=== PATIENT | female | born 1975 | race Caucasian/White ===

== ENCOUNTER 2018-11-22 12:36 | Emergency (ER) | payer BC, MEDICAID, SELFPAY ==
[2018-11-22 12:37] VITALS: BP 170/79; PULSE 76; RESP 20; TEMP 35.7; BMI 38.0
--- NOTE | 2018-11-22 13:15 | ED.VISSUMM ---
- ER Visit Summary Date of Service: 11/22/18 Chief Complaint: Sore throat History of Present Illness: The patient is a 43 F with subjective fevers sore throat for the past 2 days. No shortness of breath. She has a very slight cough is mostly chronic due to her cigarette smoking. No abdominal pain nausea vomiting. Physical Examination: She has posterior oropharyngeal erythema with bilateral exudates. There is some slight tonsillar enlargement. Normal soft palate. Normal voice. Clear lungs bilaterally. She does have anterior lymphadenopathy. Emergency Department Course and Treatment: Centor score is 4, treat with azithromycin since the patient is allergic to penicillin. Disposition: Discharge stable condition Impression: Pharyngitis This note was generated with [employer] dictation software. It may contain incorrect words, spelling, and punctuation that were not noted in review of the chart prior to signing ED Disposition - Plan for ED Patient: Disposition: Home or Assisted Living Chief Complaint: Sore Throat Instructions: ED Strep Pharyngitis Conf Prescriptions: Hydrocodone Bitart/Apap 5-325 [Danese 5MG-325MG] 1 tab PO Q4H PRN PRN 2 Days #10 tab PRN Reason: Pain Azithromycin 250 mg PO DAILY #6 tab Referrals: Gerber Valencia MD [Primary Care Provider] -
--- NOTE | 2018-11-22 13:19 | ED.DCSUM_ITS ---
- ER Visit Summary Date of Service: 11/22/18 Chief Complaint: Sore throat History of Present Illness: The patient is a 43 F with subjective fevers sore throat for the past 2 days. No shortness of breath. She has a very slight cough is mostly chronic due to her cigarette smoking. No abdominal pain nausea vomiting. Physical Examination: She has posterior oropharyngeal erythema with bilateral exudates. There is some slight tonsillar enlargement. Normal soft palate. Normal voice. Clear lungs bilaterally. She does have anterior lymphadenopathy. Emergency Department Course and Treatment: Centor score is 4, treat with azithromycin since the patient is allergic to penicillin. Disposition: Discharge stable condition Impression: Pharyngitis This note was generated with [employer] dictation software. It may contain incorrect words, spelling, and punctuation that were not noted in review of the chart prior to signing ED Disposition - Plan for ED Patient: Disposition: Home or Assisted Living Chief Complaint: Sore Throat Instructions: ED Strep Pharyngitis Conf Prescriptions: Hydrocodone Bitart/Apap 5-325 [B[place] 5MG-325MG] 1 tab PO Q4H PRN PRN 2 Days #10 tab PRN Reason: Pain Azithromycin 250 mg PO DAILY #6 tab Referrals: Gerber Valencia MD [Primary Care Provider] -
--- NOTE | 2018-11-22 13:22 | ED.VISSUMM ---
- ER Visit Summary Date of Service: 11/22/18 Chief Complaint: [] History of Present Illness: The patient is a 43 F [] Physical Examination: [] Test Results: [] Emergency Department Course and Treatment: [] Treatment Plan: [] Disposition: [] Impression: [] This note was generated with [employer] dictation software. It may contain incorrect words, spelling, and punctuation that were not noted in review of the chart prior to signing ED Disposition - Plan for ED Patient: Chief Complaint: Sore Throat Instructions: ED Strep Pharyngitis Conf Prescriptions: Hydrocodone Bitart/Apap 5-325 [[place] 5MG-325MG] 1 tab PO Q4H PRN PRN 2 Days #10 tab PRN Reason: Pain Azithromycin 250 mg PO DAILY #6 tab Referrals: Gerber Valencia MD [Primary Care Provider] -
== END 2018-11-22 13:34 | disposition home or self-care (01) ==
PROVIDERS: Emergency Provider Emergency Medicine; Family Provider Internal Medicine; PCP Internal Medicine
DX: J02.9 Acute pharyngitis, unspecified (principal); Z88.0 Allergy status to penicillin; F17.210 Nicotine dependence, cigarettes, uncomplicated; I10 Essential (primary) hypertension
CPT/HCPCS: 99282

== ENCOUNTER 2020-05-08 20:09 | Emergency (ER) | payer BC, MEDICAID, SELFPAY ==
[2020-05-08 20:10] VITALS: BP 170/80; PULSE 85; RESP 20; TEMP 36.6; O2SAT 98; BMI 40.8
--- NOTE | 2020-05-08 20:22 | ED.DCSUM_ITS ---
History of Present Illness Detail of Chief Complaint: Upper respiratory symptoms with wheezing Informant: Patient Onset: Weeks - Greater than 1 week ago Context: Sudden Onset Timing: Continuous Quality: Upper respiratory symptoms with wheezing Location: Upper respiratory Current Severity: Mild Maximum Severity: Moderate Worsened by: Coughing, Relieved by: Nothing Associated Symptoms: URI with wheezing, dysphonia and throat pain Narrative: Patient is a 45-year-old woman who is a smoker and has history of asthma. She does report productive cough of green-colored sputum. Her respiratory symptoms started 1 week ago. She complains of myalgias and arthralgias. She reports rhinorrhea, congestion postnasal drainage. She reports throat pain and change in voice. She does report shortness of breath with wheezing. She has not been on prednisone the last 3 months. She denies chest pain. She denies joint swelling. She denies rash. She does complain of global generalized headache without photophobia, neck pain or neck stiffness. She denies ringing or ears, ear pain or decreased hearing. She denies nausea, vomiting diarrhea. She denies dysuria, frequency, urgency or hematuria. She has no ill contacts to her knowledge and specifically no contacts with anyone that was positive for COVID- 19. Prior similar symptoms: No Recent Illness/Hospitalization: No <Schuler,Delbert - Last Filed: 05/08/20 20:59> <Marely Jensen - Last Filed: 05/08/20 21:51> Chief Complaint: Cold Sx - Past Medical History (1) History of asthma Status: Acute <Cshuler,Delbert - Last Filed: 05/08/20 20:59> Past Medical History Prior records reviewed: Yes Surgical History: noncontributory Lives: Alone Smoking Status: Current every day smoker Alcohol: Rare Drugs: None <Schuler,Delbert - Last Filed: 05/08/20 20:59> <Marely Jensen - Last Filed: 05/08/20 21:51> - Allergies and Home Meds Allergies/Adverse Reactions: Allergies Penicillins Allergy (Verified 11/22/18 12:55) Rash Primary Care Physician: Gerber Valencia MD [Primary Care Provider] - 3-5 Days if not improving Review of Systems General: Reports: Fever, Malaise, Subjective. Denies: Sweats, Weight loss Eyes: Denies: Visual changes - bilaterally, Blurred Vision - bilaterally ENT: Reports: Rhinorrhea, Sore throat, - - Dysphonia Cardiovascular: Reports: Palpitations. Denies: Chest pain, Heart racing Respiratory: Reports: Dyspnea, Cough, Sputum, Dyspnea on exertion. Denies: Orthopnea, Paroxysmal nocturnal dyspnea Gastrointestinal: Denies: Abdominal pain, Nausea, Vomiting, Diarrhea, Melena, Hematochezia Genitourinary: Denies: Dysuria, Hematuria, Frequency Musculoskeletal: Reports: Myalgias, Arthralgias. Denies: Neck pain, Back pain, Swelling, Extremity Pain, -, - Skin: Denies: Rash, Wounds Neurological: Reports: Headache. Denies: Weakness, Parasthesia, Numbness, -, - Endocrine: Denies: Polyuria, Polydipsia Hematologic: Denies: Easy bruising, Easy bleeding Allergy: Reports: - - He complains of mouth sores. She does have evidence of stomatitis and possibly HSV infection lower lip.. Denies: Uticaria <Schuler,Delbert - Last Filed: 05/08/20 20:59> Physical Exam Vital Signs/Narrative: Vital Signs Temp Pulse Resp BP Pulse Ox 05/08/20 20:10 98 F 85 20 H 170/80 H 98 Inital Vital Signs reviewed: Yes General: Well nourished, Well developed, Obese, Acute Distress Head: Normocephalic, Atraumatic Eyes: Perrl, EOMI. Negative for: Pale conjunctiva, Scleral icterus ENT: Moist mucous membranes, No rhinorrhea, TM's clear, - - There is evidence of stomatitis. Neck: Supple, Nontender, No lymphadenopathy, No JVD Cardiovascular: Regular rate, Regular rhythm, No murmurs Respiratory: Chest nontender, Wheezing, Decreased Air Movement. Negative for: No distress, CTA bilaterally Abdomen: Soft, Nontender, Nondistended, Normal bowel sounds Rectal: Deferred Back: Nontender, Normal Inspection. Negative for: CVA tenderness, Spinal tenderness Extremities: Nontender, No edema, - - There is no asymmetry, swelling, discoloration, leg vein distention, palpable cords or tenderness along the distribution of the deep venous system.. Negative for: Tenderness, Edema Skin: Normal color, No rash, No Trauma. Negative for: Cyanosis, Diaphoresis, Jaundice Neurological: Alert, Oriented x3, Cranial nerves II-XII grossly intact, Normal Strength, Normal Sensation Psychological: Tearful <Delbert Schuler - Last Filed: 05/08/20 20:59> Vital Signs/Narrative: Vital Signs Temp Pulse Resp BP Pulse Ox 05/08/20 21:26 98.1 F 92 18 115/61 97 05/08/20 20:41 79 17 138/68 H 98 05/08/20 20:10 98 F 85 20 H 170/80 H 98 <Marely Jensen - Last Filed: 05/08/20 21:51> Diagnostic/Tx/Re-eval Chest X-Ray - ED: 1 View, Read by ED Physician, Normal, Heart, Lungs, Mediastinum, Bony Structures, No Acute Disease, - - X-rays interpreted by me at 2058. - Medical Decision Making Presents with upper respiratory symptoms. This may represent acute bronchitis, exacerbation of asthma, pneumonia, COVID-19 infection. There is evidence of stomatitis. Appropriate lab tests and chest x-ray were ordered. She was treated with Solu-Medrol, DuoNeb and albuterol. Patient's history and physical was discussed with evening physician. Disposition be made by Dr. Cha. <Delbert Schuler - Last Filed: 05/08/20 20:59> - Medical Decision Making She was signed out to me pending repeat evaluation. After aerosol treatments she does feel improved. Lung sounds are clear on auscultation. Covid test is pending at this time. Advised the patient that I would let her go home and we will call her if her test is positive. Antibiotics and steroids were already sent to the pharmacy by Dr. Schuler. Position: Discharge Impression: 1. Bronchitis 2. Asthma exacerbation <Marely Jensen - Last Filed: 05/08/20 21:51> ED Disposition <Delbert Schuler - Last Filed: 05/08/20 20:59> <Marely Jensen - Last Filed: 05/08/20 21:51> - Plan for ED Patient: Diagnosis: Exacerbation of asthma, Upper respiratory infection with cough and congestion, Laryngitis, Purulent bronchitis Instructions: ED Bronchitis Asthmatic Prescriptions: Prednisone [Deltasone] 40 mg PO DAILY #10 tab Transmission Status: Received by [facility] - [id number] Doxycycline 100 mg PO BID #10 cap Transmission Status: Received by [facility] [place] - [id number] Referrals: Gerber Valencia MD [Primary Care Provider] - 3-5 Days if not improving
[2020-05-08 20:34] VITALS: PULSE 93; RESP 20
[2020-05-08] MEDS: Ipratropium/Albuterol Sulfate 3 ML AMPUL.NEB INHALATION (20:34)
[2020-05-08] MEDS: Albuterol 2.5 MG/3 ML VIAL.NEB. INHALATION ×3 (20:34)
[2020-05-08 20:41] VITALS: BP 138/68; PULSE 79; RESP 17; O2SAT 98
[2020-05-08] MEDS: MethylPREDNISolone 125 MG/2 ML Vial IV (20:43)
[2020-05-08 20:44] VITALS: O2SAT 98
--- NOTE | 2020-05-08 20:45 | RAD_ITS ---
STUDY: X-RAY CHEST REASON FOR EXAM: Female, 45 years old. SORE THROAT, NO VOICE, BODY PAIN X 1 WEEK, UNBEARABLE TODAY. TECHNIQUE: Single AP portable view of the chest. COMPARISON: 04/05/2014. FINDINGS: The lungs are clear and expanded. There is no demonstrated pleural abnormality. Normal size heart. Normal mediastinum and karyn. Normal visualized pulmonary arteries. Normal visualized aortic arch and descending thoracic aorta. Normal visualized thoracic spine. Normal visualized ribs, clavicles, and shoulders. There is no demonstrated abnormality of the visualized soft tissue structures of the upper abdomen. RAD/Chest 1 View (Portable) IMPRESSION: Normal x-ray examination of the chest. Electronically Signed: Venancio Aguirre MD at 21:34 EDT , Service support ,
[2020-05-08 20:49] LABS: Absolute Lymphocyte Count 1.26 X10^3/uL (0.83-4.51); Absolute Neutrophil Count 4.1 X10^3/uL (2.0-7.7); Basophil# 0.02 X10^3/uL; Basophil% 0.3 % (0-1); Eosinophil# 0.27 X10^3/uL; Eosinophils% 4.5 % (0-5); Hematocrit 36.6 % (37-47); Hemoglobin 11.2 g/dL (12.0-15.0); Lymphocyte # 1.26 X10^3/ul (4.0); Lymphocyte % 20.9 % (19-41); Mean Corp Hgb Conc 30.6 g/dL (32-36); Mean Corpuscular Hgb 27.5 pg (27.0-32.0); Mean Corpuscular Volume 89.7 fL (81-99); Mean Platelet Vol. 12.8 fl (6.2-12.0); Monocyte# 0.34 X10^3/uL; Monocyte% 5.6 % (0-10); NRBC Flagged by Analyzer 0 % (0-5); Neutrophil # 4.11 X10^3/uL (2.7-7.7); Neutrophil % 68.2 % (47-70); Platelet Count 163 K/mm3 (150-450); RBC Distribution Width CV 14.5 % (11.6-14.6); RBC Distribution Width SD 47.1 fl (35.1-43.9); Red Blood Count 4.08 M/mm3 (4.2-5.4)
[2020-05-08 21:07] LABS: AST(SGOT) 18 U/L (15-37); Alanine Aminotransfer ALT/SGPT 28 U/L (13-56); Albumin, Serum 3.4 g/dL (3.2-5.0); Alkaline Phosphatase 81 U/L (45-117); Anion Gap 4 (5-15); BUN 8 mg/dL (7-18); BUN/Creat Ratio 10.5 RATIO (10-20); Calcium,Total 8.6 mg/dL (8.5-10.1); Chloride 108 mmol/L (98-107); Creatinine, Serum 0.76 mg/dL (0.55-1.02); EST Glomerular Filtration Rate 87 mL/min (>60); Est Glom Filt Rate - Afr Amer 106 mL/min (>60); Estimated Creatinine Clearance 105.58 ml/min; Globulin 3.5 g/dL (2.2-4.2); Glucose 167 mg/dL (74-106); Potassium 3.7 mmol/L (3.5-5.1); Protein, Total 6.9 g/dL (6.4-8.2); Sodium Level 141 mmol/L (136-145)
[2020-05-08 21:08] LABS: Lactic Acid 1.8 mmol/L (0.4-1.9)
[2020-05-08] MEDS: Doxycycline 100 MG CAPSULE PO (21:24)
[2020-05-08 21:26] VITALS: BP 115/61; PULSE 92; RESP 18; TEMP 36.7; O2SAT 97
--- NOTE | 2020-05-08 21:58 | CPS ---
x3 Albuterol given to pt. in ED as well
[2020-05-08 22:01] VITALS: BP 133/61; PULSE 81; RESP 21; O2SAT 95
[2020-05-08 22:27] LABS: Probe Check PASS; Specimen Processing Control PASS
== END 2020-05-08 22:02 | disposition home or self-care (01) ==
PROVIDERS: Emergency Provider Emergency Medicine; PCP Internal Medicine
DX: J45.901 Unspecified asthma with (acute) exacerbation (principal); J40 Bronchitis, not specified as acute or chronic; E66.9 Obesity, unspecified; F17.200 Nicotine dependence, unspecified, uncomplicated
CPT/HCPCS: 71045; 80053; 83605; 85025; 87633; 87635; 94640; 96374; 99285; G2023; A4216; U0003

== ENCOUNTER 2020-09-24 13:51 | Emergency (ER) | payer BC, MEDICAID, SELFPAY ==
[2020-09-24 13:52] VITALS: BP 160/86; PULSE 71; RESP 18; TEMP 36.3; O2SAT 100; BMI 40.7
--- NOTE | 2020-09-24 14:14 | RAD_ITS ---
STUDY: X-RAY CHEST REASON FOR EXAM: Female, 45 years old. LEFT SIDE CHEST PAIN TECHNIQUE: Single AP portable view of the chest. COMPARISON: Comparison is made with prior study dated 05/08/2020. FINDINGS: EKG electrodes are seen. The lungs are clear and expanded. There is no demonstrated pleural abnormality. There is mild cardiac enlargement. Normal mediastinum and karyn. Normal visualized pulmonary arteries. Normal visualized aortic arch and descending thoracic aorta. There are diffuse degenerative changes of the visualized thoracic spine. Normal visualized ribs, clavicles, and shoulders. There is no demonstrated abnormality of the visualized soft tissue structures of the upper abdomen. RAD/Chest 1 View (Portable) IMPRESSION: Mild cardiomegaly. The lungs are clear. Electronically Signed: Tico Mari, at 15:00 EST , Service support ,
--- NOTE | 2020-09-24 14:14 | EKG12_ITS ---
Test Reason : Blood Pressure : / mmHG Vent. Rate : 070 BPM Atrial Rate : 070 BPM P-R Int : 164 ms QRS Dur : 092 ms QT Int : 414 ms P-R-T Axes : 014 010 010 degrees QTc Int : 447 ms Normal sinus rhythm Cannot rule out Anterior infarct , age undetermined Abnormal ECG Confirmed by NUNU BOLAND, HUONG ([id number]), reinforced concrete inspector KATELIN HANLEY ([id number]) on 09/25/2020 8:37:42 AM Referred By: ARON Confirmed By:HUONG EDDY MD
[2020-09-24 14:22] VITALS: O2SAT 98
[2020-09-24 14:25] LABS: Absolute Lymphocyte Count 1.68 X10^3/uL (0.83-4.51); Basophil# 0.01 X10^3/uL; Basophil% 0.2 % (0-1); Eosinophil# 0.19 X10^3/uL; Eosinophils% 3.6 % (0-5); Hematocrit 34.1 % (37-47); Hemoglobin 10.6 g/dL (12.0-15.0); Lymphocyte # 1.68 X10^3/ul (4.0); Lymphocyte % 32.2 % (19-41); Mean Corp Hgb Conc 31.1 g/dL (32-36); Mean Corpuscular Hgb 26.1 pg (27.0-32.0); Mean Platelet Vol. 12.3 fl (6.2-12.0); Monocyte# 0.35 X10^3/uL; Monocyte% 6.7 % (0-10); NRBC Flagged by Analyzer 0 % (0-5); Neutrophil # 2.97 X10^3/uL (2.7-7.7); Neutrophil % 57.1 % (47-70); Platelet Count 165 K/mm3 (150-450); RBC Distribution Width CV 13.8 % (11.6-14.6); RBC Distribution Width SD 42.7 fl (35.1-43.9); Red Blood Count 4.06 M/mm3 (4.2-5.4); White Blood Count 5.2 K/mm3 (4.4-11.0)
--- NOTE | 2020-09-24 14:37 | ED.DCSUM_ITS ---
- ER Visit Summary Date of Service: 09/24/20 Chief Complaint: Chest pain History of Present Illness: The patient is a 45 F who presents with chest pain that began yesterday. Patient states the pain is been constant since yesterday. Patient states it is gradually gotten worse. Patient describes it as aching. Patient states the pain is over the left upper chest radiates into her neck and back. Patient also admits to some tingling in her left hand. Patient states her pain is worse with certain movements. Patient states the pain is better with rest. Patient admits to nausea but denies any vomiting. Patient denies any diaphoresis. Patient denies any shortness of breath or cough. Patient denies any fevers or chills. Patient states she does get lightheaded at times. Physical Examination: Vital signs are stable. Patient is afebrile. Patient is in no acute distress. Oral mucosa is pink and moist. Neck is supple. Trachea is midline. There is no JVD noted. Heart was regular rate and rhythm. Lungs are clear and equal bilaterally. Abdomen is soft. Bowel sounds are normal. There is no tenderness. There is no rebound or guarding noted. Skin is warm dry. Cranial nerves II through XII are intact. There are no focal motor or sensory deficits noted. Extremities are intact. There is no calf tenderness or edema. Test Results: EKG shows a normal sinus rhythm with a rate of 70. There are no acute ST or T wave changes noted. CBC shows a mild anemia with a hemoglobin of 10.6 and hematocrit of 34.1. Basic metabolic profile, troponin, and BNP were all within normal limits. D-dimer was slightly elevated 0.64. Portable chest x-ray was obtained. There is no acute cardiopulmonary process. CTA of the chest was obtained because of the elevated D-dimer. There is no evidence of pulmonary embolism or aortic dissection. These were interpreted by the radiologist and reviewed by myself. Emergency Department Course and Treatment: Patient was given aspirin and nitroglycerin here. Patient was feeling better on reevaluation. Patient was advised of her findings. Patient has a HEART score of 2. Patient was advised that this is low risk for acute cardiac event. Patient was instructed to use ice to the area. Patient was instructed to follow-up with her primary care physician in 5 to 7 days. Patient was given a prescription for ibuprofen to take as needed for pain. Patient understood and was agreeable with the plan. All questions were answered. Disposition: Discharge home Impression: 1. Chest pain of uncertain etiology This note was generated with [employer] dictation software. It may contain incorrect words, spelling, and punctuation that were not noted in review of the chart prior to signing ED Disposition - Plan for ED Patient: Disposition: Home or Assisted Living Diagnosis: Chest pain of uncertain etiology Instructions: ED Chest Pain Atypical Unkn Cause Referrals: Gerber Valencia MD [Primary Care Provider] - 3-5 Days
[2020-09-24 14:38] LABS: D-Dimer Quantitative (DVT/PE) 0.64 FEU/ug/m (0.27-0.49)
--- NOTE | 2020-09-24 14:39 | CT_ITS ---
STUDY: CTA CHEST REASON FOR EXAM: Female, 45 years old. SOB, LEFT ARM NUMBNESS, CHEST PAIN RADIATION DOSAGE (If Supplied By Facility): CTDIvol = ( 17.95 ) mGy, DLP = ( 1137.70 ) mGycm TECHNIQUE: The examination was performed with the intravenous administration of IV 100mL Isovue-370. Post-processing of the angiographic images was performed, with multiplanar reformation and 3D reconstruction. Individualized dose optimization techniques were used for this CT. COMPARISON: Comparison is made with prior chest radiograph done earlier today. FINDINGS: Normal enhancement of the main pulmonary artery and right and left pulmonary arteries. Normal enhancement of the bilateral peripheral pulmonary arteries. There is no demonstrated pulmonary embolism. Normal thoracic aorta and visualized great vessels. There is no demonstrated aortic dissection. Normal heart and pericardium. Normal mediastinum. Normal hilar regions. Normal visualized trachea and bronchi. The lungs are well expanded. Normal pulmonary parenchyma. Normal pleura. Normal chest wall structures. There are degenerative changes of thoracic spine. Normal visualized upper abdomen. CT/CTA Chest W/WO Contrast IMPRESSION: Normal CTA chest examination, without a demonstrated pulmonary embolism or arterial dissection. Pending Final Proof Editing
[2020-09-24 14:40] LABS: Anion Gap 3 (5-15); BUN 8 mg/dL (7-18); BUN/Creat Ratio 10.6 RATIO (10-20); Calcium,Total 8.7 mg/dL (8.5-10.1); Chloride 107 mmol/L (98-107); Creatinine, Serum 0.75 mg/dL (0.55-1.02); EST Glomerular Filtration Rate 88 mL/min (>60); Est Glom Filt Rate - Afr Amer 107 mL/min (>60); Estimated Creatinine Clearance 103.51 ml/min; Glucose 106 mg/dL (74-106); Potassium 3.7 mmol/L (3.5-5.1); Sodium Level 141 mmol/L (136-145)
[2020-09-24 14:41] LABS: BNP,B-Type NATRIURETIC PEPTIDE 83.3 pg/mL (0-100)
[2020-09-24] MEDS: Aspirin 81 MG TAB.CHEW 324 MG PO (14:51)
[2020-09-24 14:52] VITALS: BP 120/73; PULSE 77
[2020-09-24] MEDS: Nitroglycerin SL (ED/IMG/CATH) 0.4 MG TABLET SUBLINGUAL (14:52)
[2020-09-24 16:22] VITALS: BP 135/74; PULSE 69; RESP 16; O2SAT 96
[2020-09-24 16:23] VITALS: BP 135/74; PULSE 69; RESP 16; O2SAT 96
== END 2020-09-24 16:31 | disposition home or self-care (01) ==
PROVIDERS: Emergency Provider Emergency Medicine; PCP Internal Medicine
DX: R07.9 Chest pain, unspecified (principal); R42 Dizziness and giddiness; R11.0 Nausea; M54.2 Cervicalgia; R20.2 Paresthesia of skin
CPT/HCPCS: 71045; 71275; 80048; 83880; 84484; 85025; 85379; 93005; 99284; J7030; Q9967; A4216

== ENCOUNTER 2025-01-05 09:19 | Emergency (ER) | payer BC, SELFPAY ==
[2025-01-05 09:19] VITALS: BP 221/106; PULSE 64; RESP 14; TEMP 36.4; O2SAT 99; BMI 41.0
[2025-01-05 09:22] VITALS: BP 195/98; PULSE 65; RESP 18; TEMP 36.4; O2SAT 100
--- NOTE | 2025-01-05 09:35 | ED.VIS.DENTA ---
HPI History of Present Illness Chief Complaint: Dental Informant: patient Narrative Narrative: 49-year-old female presenting to the emergency room with facial swelling and dental pain. Patient states that yesterday she was eating a animal cracker and broke the lower left premolar. She states she has not been having problems with this tooth. She notes that since it is broken she has developed pain and swelling particularly in the overnight hours. She notes that this morning she felt very hot and wanted to have it evaluated. She is a dentulous on the top and notes that her prior dentist moved to [place]. She is allergic to penicillin. [facility] Medical History (Updated 01/05/25 @ 09:[address] Alex Graham DO) Hx of essential hypertension Home Medications ?Medication ?Instructions ?Recorded ?Last Taken ?Type clindamycin HCl 300 mg capsule 300 mg PO Q6H ##40 02/08/17 08/03/17 Rx (Cleocin HCl) hydrocodone-acetaminophen 5-325mg 1 tab PO Q6H PRN PRN Pain ##6 08/04/17 Unknown Rx 5mg-325mg azithromycin 250 mg tablet 250 mg PO DAILY #6 tabs 11/22/18 Unknown Rx doxycycline monohydrate 100 mg 100 mg PO BID #10 caps 05/08/20 Unknown Rx capsule ibuprofen 800 mg tablet 800 mg PO TID PRN PRN Pain Score 09/24/20 Unknown Rx 1-10 #20 tabs clindamycin HCl 300 mg capsule 300 mg PO Q6H #40 CAPSULES 01/05/25 Unknown Rx (Cleocin HCl) ibuprofen 600 mg tablet 600 mg PO Q8H PRN PRN pain #20 01/05/25 Unknown Rx TABLETS oxycodone-acetaminophen 5 mg-325 1 tab PO Q6H PRN PRN Pain 3 days 01/05/25 Unknown Rx mg tablet #12 TABLETS Allergy/AdvReac Type Severity Reaction Status Date / Time Penicillins Allergy Rash Verified 01/05/25 09:19 Social History Smoking Status: Current every day smoker tobacco type: e-cigarettes ROS ROS ED Constitutional Constitutional ED: Denies chills or weight loss Eyes Eyes: Denies change in vision or diplopia ENT ENT ED: Reports other Details: See history of present illness ; Denies ear pain, rhinorrhea or sore throat Cardiovascular Cardiovascular: Denies chest pain, orthopnea, palpitations or racing heartbeat Respiratory/Chest Respiratory/Chest: Denies cough, dyspnea or orthopnea Gastrointestinal Gastrointestinal: Denies abdominal pain, diarrhea, nausea or vomiting Genitourinary Genitourinary ED: Denies dysuria, hematuria or urinary frequency Musculoskeletal Musculoskeletal: Denies arthralgias or myalgias Integumentary Denies abscess or rash Neurologic Neurologic: Denies headache(s) or weakness Psychiatric Psychiatric: Denies anxiety, depression, suicidal ideation or suicidal thoughts Endocrine Endocrinology: Denies polydipsia, polyphagia or polyuria Allergic/Immunologic Allergic/Immunologic ED: Denies mouth swelling, tongue swelling or urticaria EXAM Physical Exam Const Vital Signs: 01/05/25 09:19 01/05/25 09:22 Temperature 97.6 F L 97.6 F L Temperature Source Oral Oral Pulse Rate 64 65 Respiratory Rate 14 18 Blood Pressure 221/106 H 195/98 H Blood Pressure Mean 144 130 Pulse Ox 99 100 Oxygen Delivery Method Room Air Room Air Positive well nourished, well developed and obese General Appearance ED: well developed and NAD Nutritional Appearance: obese HEENT Reports normocephalic, head/scalp atraumatic and moist mucous membranes HEENT Narrative: Patient has swelling along the left lower mandible. Submental space does not appear infected floor the mouth is soft. There is very focal decay of the left lower first premolar. I do not appreciate a drainable abscess along the gumline. There is no overlying facial erythema. I do not appreciate trismus. Eyes PERRL and EOMs intact bilaterally Neck no lymphadenopathy, supple and no JVD Resp normal respiratory effort and clear to auscultation bilaterally Cardio regular rate, regular rhythm and no murmurs GI normal to inspection, nondistended, normoactive bowel sounds and non-tender Palpation: soft Back/Spine no CVA tenderness and normal ROM Extremity normal to inspection General Extremety ED: Negative for edema General Extremity: Negative for edema Neuro oriented x3 and CN's II-XII intact bilaterally Sensorium / Orientation: alert Motor Exam: strength 5/5 throughout Psych mental status grossly normal Mood & Affect: Negative for depressed or tearful Skin no rashes or lesions noted and no wounds MDM MDM MDM Narrative Medical decision making narrative: Differential diagnosis includes but not limited to Ernesto's angina dental abscess ANUG gingivitis periapical abscess facial cellulitis. Patient will be started on clindamycin due to penicillin allergy. We talked about return instructions. We talked about the potential need for hospitalization and definitive treatment. We talked about potential need for transfer in the future. At this point though I think we can start her on oral antibiotics and pain medication. Would recommend early dental follow-up. Dental referral list was given History & Record Review Discussion w/independent historian: Patient Discharge Plan Triage Chief Complaint: Dental ED Provider: Alex Graham Dx/Rx/DC Orders Clinical Impression: Abscess, dental, Pain, dental Instructions: Dental Abscess Prescriptions: New clindamycin HCl [Cleocin HCl] 300 mg capsule 300 mg PO Q6H Qty: 40 0RF oxycodone-acetaminophen 5-325 mg tablet 1 tab PO Q6H PRN PRN (Reason: Pain) 3 Days Qty: 12 0RF ibuprofen 600 mg tablet 600 mg PO Q8H PRN PRN (Reason: pain) Qty: 20 0RF No Action clindamycin HCl [Cleocin HCl] 300 MG capsule 300 mg PO Q6H Qty: 40 0RF hydrocodone-acetaminophen 1 TABLET tablet 1 tab PO Q6H PRN PRN (Reason: Pain) Qty: 6 0RF azithromycin 250 MG tablet 250 mg PO DAILY Qty: 6 0RF Rx Instructions: 2 tabs 1st day, 1 tab daily after doxycycline monohydrate 100 MG capsule 100 mg PO BID Qty: 10 0RF ibuprofen 800 MG tablet 800 mg PO TID PRN PRN (Reason: Pain Score 1-10) Qty: 20 0RF Primary Care Provider: Gerber Valencia Referrals: Gerber Valencia MD [Primary Care Provider] - Activity Restrictions/Additional Instructions: I strongly encourage you to obtain early dental follow-up. Please monitor for any worsening symptoms and return if there are concerns. Print Language: Occitan Disposition Disposition: Home, Self Care
[2025-01-05 09:55] VITALS: BP 134/78; PULSE 64; RESP 18; TEMP 37.1; O2SAT 99
== END 2025-01-05 09:56 | disposition home or self-care (01) ==
PROVIDERS: Emergency Provider Emergency Medicine; PCP Internal Medicine; Visit Provider Emergency Medicine
DX: K04.7 Periapical abscess without sinus (principal); I10 Essential (primary) hypertension; F17.290 Nicotine dependence, other tobacco product, uncomplicated; E66.9 Obesity, unspecified; K08.89 Other specified disorders of teeth and supporting structures
CPT/HCPCS: 99282

== ENCOUNTER 2025-01-07 15:25 | Emergency (ER) | payer BC, SELFPAY ==
[2025-01-07 15:26] VITALS: BP 211/116; PULSE 71; RESP 22; TEMP 36.4; O2SAT 100; BMI 41.1
[2025-01-07 15:30] VITALS: BP 211/116; PULSE 71; RESP 22; TEMP 36.4; O2SAT 100
--- NOTE | 2025-01-07 15:37 | EX.ED.DYSGE1 ---
HPI <LATRICE Soriano - Last Filed: 01/07/25 18:08> History of Present Illness Chief Complaint: Abscess Narrative Narrative: 49-year-old female states her left lower premolar broke off about 3 days ago and she developed pain and swelling in this area. She was seen here on 01/05/2025 when it started and was prescribed clindamycin for dental abscess. Despite taking the antibiotic and ibuprofen the swelling under her chin is worsening. She denies fever or chills or difficulty swallowing or breathing. She has not established with a dentist. PFSH <LATRICE Soriano - Last Filed: 01/07/25 18:08> [facility] Medical History (Updated 01/07/25 @ 16:56 by LATRICE Soriano) Hx of essential hypertension Home Medications ?Medication ?Instructions ?Recorded ?Last Taken ?Type NK 01/07/25 Unknown History Allergy/AdvReac Type Severity Reaction Status Date / Time Penicillins Allergy Rash Verified 01/07/25 15:26 Social History Smoking Status: Current every day smoker tobacco type: e-cigarettes ROS <LATRICE Soriano - Last Filed: 01/07/25 18:08> ROS ED ROS Narrative Constitutional: Negative for fever, chills, malaise. ENT: Negative for sore throat, ear pain. Respiratory: Negative for shortness of breath. Neuro: Negative for headache. EXAM <LATRICE Soriano - Last Filed: 01/07/25 18:08> Physical Exam Narrative Exam Narrative: CONST: Patient sitting in no acute distress. EYES: Normal inspection. ENT: Left lower premolar is eroded down to the gumline and tender to palpation. No trismus or tongue elevation, sublingual space is soft. There is no drainable periapical abscess. She is obese with a large neck but there is submental swelling which she states is new. No stridor or drooling. Normal posterior oropharynx. NECK: Normal inspection. RESP: No respiratory distress, CTAB. CVS: Regular rate and rhythm, no murmur, no gallop. SKIN: Color normal, no rash, warm, dry, intact. EXTREMITIES: Normal appearance, no pedal edema. NEURO: Alert and answering questions appropriately. PSYCH: Normal affect. Const Vital Signs: 01/07/25 15:26 01/07/25 15:30 Temperature 97.6 F L 97.6 F L Temperature Source Oral Oral Pulse Rate 71 71 Respiratory Rate 22 H 22 H Blood Pressure 211/116 H 211/116 H Blood Pressure Mean 147 147 Pulse Ox 100 100 Oxygen Delivery Method Room Air Room Air <Dr. Italo Sen DO - Last Filed: 01/07/25 20:31> Physical Exam Const Vital Signs: 01/07/25 15:26 01/07/25 15:30 Temperature 97.6 F L 97.6 F L Temperature Source Oral Oral Pulse Rate 71 71 Respiratory Rate 22 H 22 H Blood Pressure 211/116 H 211/116 H Blood Pressure Mean 147 147 Pulse Ox 100 100 Oxygen Delivery Method Room Air Room Air MDM <LATRICE Soriano - Last Filed: 01/07/25 18:08> [facility] Narrative Medical decision making narrative: Differential: Dental abscess, Ernesto's angina Patient's left lower premolar broke off several days ago and she developed a dental abscess. She has been taking p.o. clindamycin since 01/05/2025 and feels like the swelling around her chin is worsening. She is awake and alert in no distress. She is hypertensive with otherwise normal vital signs. She is able to speak in full sentences and is on 100% on room air. There is no drooling or stridor. Left lower premolar has decayed down to the gumline. There is no focal periapical abscess. Her posterior oropharynx is normal. Sublingual space is soft. She has a large neck at baseline but I can feel submental enlargement. Trachea is midline. Since her symptoms are worsening and there is some submental swelling I ordered a CT of the soft tissue neck. During testing she was given IV Toradol and IV clindamycin. Labs show WBC of 6.5. Hemoglobin of 11.1 is stable. Creatinine is 1.07. Her last creatinine was 5 years ago and was 0.75 so this is likely not significant. CT shows a soft tissue phlegmon versus early abscess around the left mandible. There is no osseous abnormalities. Since patient is clinically stable, afebrile, has no leukocytosis, and no drainable abscess I do not think she requires admission or emergent transfer for dental evaluation. I recommended she continue clindamycin and she is calling a dentist tomorrow in [place]. I thoroughly discussed return precautions and she was discharged in stable condition. Lab Data Attestation: I reviewed the patient's lab results. Labs: Laboratory Results - last 24 hr 01/07/25 15:53 WBC 6.5 RBC 4.28 Hgb 11.1 L Hct 36.0 L MCV 84.1 MCH 25.9 L MCHC 30.8 L RDW Std Deviation 42.5 RDW Coeff of Mable 13.8 Plt Count 137 L MPV 12.9 H Immature Gran % (Auto) 0.300 Neut % (Auto) 57.4 Lymph % (Auto) 31.0 [place] % (Auto) 6.9 Eos % (Auto) 3.9 Baso % (Auto) 0.5 Absolute Neuts (auto) 3.7 Absolute Lymphs (auto) 2.01 Nucleated RBC % 0 Sodium 142 Potassium 3.8 Chloride 112 H Carbon Dioxide 25.0 Anion Gap 5 BUN 10 Creatinine 1.07 H Estim Creat Clear Calc 91.55 Est GFR (MDRD) Af Amer 70 Est GFR (MDRD) Non-Af 58 L BUN/Creatinine Ratio 9.3 L Glucose 104 Calcium 8.9 Radiography Diagnostic Testing: Clinical Impression(s) from Imaging Studies Soft Tissue Neck CT 01/07/25 15:42 IMPRESSION: 1. Soft tissue phlegmon versus early abscess about the left mandible. No osseous erosions. 2. Enlarged level 1B left lymph node One or more dose reduction techniques were used (e.g., Automated exposure control, adjustment of the mA and/or kV according to patient size, use of iterative reconstruction technique). Reading Location: [facility] <Dr. Italo Sen, DO - Last Filed: 01/07/25 20:31> [facility] Narrative Medical decision making narrative: Differential: Dental abscess, Ernesto's angina Patient's left lower premolar broke off several days ago and she developed a dental abscess. She has been taking p.o. clindamycin since 01/05/2025 and feels like the swelling around her chin is worsening. She is awake and alert in no distress. She is hypertensive with otherwise normal vital signs. She is able to speak in full sentences and is on 100% on room air. There is no drooling or stridor. Left lower premolar has decayed down to the gumline. There is no focal periapical abscess. Her posterior oropharynx is normal. Sublingual space is soft. She has a large neck at baseline but I can feel submental enlargement. Trachea is midline. Since her symptoms are worsening and there is some submental swelling I ordered a CT of the soft tissue neck. During testing she was given IV Toradol and IV clindamycin. Labs show WBC of 6.5. Hemoglobin of 11.1 is stable. Creatinine is 1.07. Her last creatinine was 5 years ago and was 0.75 so this is likely not significant. CT shows a soft tissue phlegmon versus early abscess around the left mandible. There is no osseous abnormalities. Since patient is clinically stable, afebrile, has no leukocytosis, and no drainable abscess I do not think she requires admission or emergent transfer for dental evaluation. I recommended she continue clindamycin and she is calling a dentist tomorrow in [place]. I thoroughly discussed return precautions and she was discharged in stable condition. ED attending note: I evaluated the patient in conjunction with the HEIDI. I agree with his/her statements and above findings. I have personally performed a face to face assessment of the patient and have reviewed the [facility]IDI Note. I performed a substantive portion of the visit including all aspects of the following. I personally saw the patient performed chart review, physical exam, reviewed labs, imaging (if obtained), and formulated a treatment and management plan. This note was generated with Float: [place] dictation software. It may contain incorrect words, spelling, and punctuation that were not noted in review of the chart prior to signing. Lab Data Labs: Laboratory Results - last 24 hr 01/07/25 15:53 WBC 6.5 RBC 4.28 Hgb 11.1 L Hct 36.0 L MCV 84.1 MCH 25.9 L MCHC 30.8 L RDW Std Deviation 42.5 RDW Coeff of Mable 13.8 Plt Count 137 L MPV 12.9 H Immature Gran % (Auto) 0.300 Neut % (Auto) 57.4 Lymph % (Auto) 31.0 [place] % (Auto) 6.9 Eos % (Auto) 3.9 Baso % (Auto) 0.5 Absolute Neuts (auto) 3.7 Absolute Lymphs (auto) 2.01 Nucleated RBC % 0 Sodium 142 Potassium 3.8 Chloride 112 H Carbon Dioxide 25.0 Anion Gap 5 BUN 10 Creatinine 1.07 H Estim Creat Clear Calc 91.55 Est GFR (MDRD) Af Amer 70 Est GFR (MDRD) Non-Af 58 L BUN/Creatinine Ratio 9.3 L Glucose 104 Calcium 8.9 Radiography Diagnostic Testing: Clinical Impression(s) from Imaging Studies Soft Tissue Neck CT 01/07/25 15:42 IMPRESSION: 1. Soft tissue phlegmon versus early abscess about the left mandible. No osseous erosions. 2. Enlarged level 1B left lymph node One or more dose reduction techniques were used (e.g., Automated exposure control, adjustment of the mA and/or kV according to patient size, use of iterative reconstruction technique). [facility] T[facility] Chief Complaint: Abscess ED Midlevel Provider: Catalina Collado ED Provider: Italo Sen Dx/Rx/DC Orders Clinical Impression: Abscess, dental, Pain, dental Instructions: Dental Abscess Prescriptions: No Action NK Primary Care Provider: Gerber Valencia Referrals: Gerber Valencia MD [Primary Care Provider] - Activity Restrictions/Additional Instructions: Continue the antibiotics as prescribed. It is important that you call the dentist tomorrow for close follow-up. Return if you have any worsening symptoms like a fever above 100.4 ?F, difficulty swallowing your spit, drooling, or difficulty opening your mouth, or wheezing. Print Language: Nigerian Disposition Disposition: Home, Self Care Discharge Date/Time: 01/07/25 17:21
--- NOTE | 2025-01-07 15:42 | CT_ITS ---
PROCEDURE: SOFT TISSUE NECK WITH CONTRAST REASON FOR EXAM: Dental abscess TECHNIQUE: CT of the soft tissues of the neck from the orbits to the upper mediastinum with intravenous contrast. COMPARISON: None. FINDINGS: Airway: Midline and patent. Salivary glands: Unremarkable. Soft tissues: Fat stranding and edema with heterogeneous hypodensity adjacent to the left mandible. Lymph nodes: Left level 1B 10 mm lymph node Thyroid: Unremarkable. Vasculature: Carotid arteries and internal jugular veins are unremarkable. Orbits: Unremarkable at visualized levels. Paranasal sinuses and mastoids: Grossly clear at visualized levels. Lung apices: Clear. Upper mediastinum: Visualized mediastinum is unremarkable. Bones: Unremarkable. CT/Soft Tissue Neck WITH Contrast IMPRESSION: 1. Soft tissue phlegmon versus early abscess about the left mandible. No osse ous erosions. 2. Enlarged level 1B left lymph node One or more dose reduction techniques were used (e.g., Automated exposure contr ol, adjustment of the mA and/or kV according to patient size, use of iterative reconstruction technique). Reading Location: [facility]
[2025-01-07 15:59] LABS: Absolute Lymphocyte Count 2.01 X10^3/uL (0.83-4.51); Absolute Neutrophil Count 3.7 X10^3/uL (2.0-7.7); Basophil# 0.03 X10^3/uL; Basophil% 0.5 % (0-1); Eosinophil# 0.25 X10^3/uL; Eosinophils% 3.9 % (0-5); Hemoglobin 11.1 g/dL (12.0-15.0); Lymphocyte # 2.01 X10^3/ul (0.83-4.51); Mean Corp Hgb Conc 30.8 g/dL (32-36); Mean Corpuscular Hgb 25.9 pg (27.0-32.0); Mean Corpuscular Volume 84.1 fL (81-99); Mean Platelet Vol. 12.9 fl (6.2-12.0); Monocyte# 0.45 X10^3/uL; Monocyte% 6.9 % (0-10); NRBC Flagged by Analyzer 0 % (0-5); Neutrophil # 3.73 X10^3/uL (2.7-7.7); Neutrophil % 57.4 % (47-70); Platelet Count 137 K/mm3 (150-450); RBC Distribution Width CV 13.8 % (11.6-14.6); RBC Distribution Width SD 42.5 fl (35.1-43.9); Red Blood Count 4.28 M/mm3 (4.2-5.4); White Blood Count 6.5 K/mm3 (4.4-11.0)
[2025-01-07] MEDS: Ketorolac 15 MG/ML Vial IV (15:59)
[2025-01-07 16:14] LABS: Anion Gap 5 (5-15); BUN 10 mg/dL (7-18); BUN/Creat Ratio 9.3 RATIO (10-20); Calcium,Total 8.9 mg/dL (8.5-10.1); Chloride 112 mmol/L (98-107); Creatinine, Serum 1.07 mg/dL (0.55-1.02); EST Glomerular Filtration Rate 58 mL/min (>60); Est Glom Filt Rate - Afr Amer 70 mL/min (>60); Estimated Creatinine Clearance 91.55 ml/min; Glucose 104 mg/dL (74-106); Potassium 3.8 mmol/L (3.5-5.1); Sodium Level 142 mmol/L (136-145)
[2025-01-07] MEDS: Clindamycin 600 MG/50 ML BAG 100 MG IV (17:09)
== END 2025-01-07 17:21 | disposition home or self-care (01) ==
PROVIDERS: Physician Assistant; Emergency Provider Emergency Medicine; PCP Internal Medicine; Visit Provider Emergency Medicine
DX: K04.7 Periapical abscess without sinus (principal); I10 Essential (primary) hypertension; K08.89 Other specified disorders of teeth and supporting structures; F17.290 Nicotine dependence, other tobacco product, uncomplicated; E66.9 Obesity, unspecified
CPT/HCPCS: 70491; 80048; 85025; 96365; 96375; 99282; Q9967; A4216